=== PATIENT | male | born 1950 | race Caucasian/White ===

== ENCOUNTER → 2016-05-09 | Outpatient (CLI) | payer MEDICARE, OTHER ==
[~2016-05-09] VITALS: Ht 170.2 cm; Wt 122.6 kg
[~2016-05-09] MED LIST: ALBU90AE IH; AMLO10TA PO; ASPI-587 PO; ASPI81TA19 GT; BREO ELLIPTA PUFF; BREO PUFF; BUPIVACAINE 0.25% 30 ML (SENSORCAINE) VIAL ONE; CHOL400C8 PO; ENLP10T GT; FENO135C PO; FISH1CAP15 PO; FOLI1TAB24 PO; GLIP10TA13 PO; GLUC-132 PO; IBUP200C PO; L GA1CAP2 PO; LACT1CAP64 PO; LVT.05T PO; METO-272 PO; TAMS0.4C2 PO; TIOT18CA2 IH; TRIAMCINOLONE ACET (KENALOG-40) 40 MG/ML 1 ML VIAL ONE
--- OUTSIDE RECORDS SUMMARY | 2016-05-09 12:33 | XMS REPORT | Continuity of Care Document ---
Author Author [facility] Organization [facility] Address Unknown Phone Unavailable Care Team Providers Care Java Swing Developer Name Role Phone ALTON FINK MD PCP Insurance Providers Payer Name Policy Number Subscriber Name Relationship W[employer] Medicare [id number] Raimundo Gonzalez 16 Self / Same As Patient Comm Crossover Enter Ins Name [id number] Raimundo Gonzalez 16 Self / Same As Patient Advance Directives Directive Response Recorded Date/Time Advance Directives No 08/18/14 4:03pm Health Care Power of Horticultural Nursery Assistant No 08/18/14 4:03pm Organ Donor No 08/18/14 4:03pm Resuscitation Status Full Code 08/18/14 4:03pm Problems Medical Problems Problem Onset Date Status CAD (coronary artery disease) 09/10/2013 Active Hyperlipemia 09/10/2013 Active Medications Medication Dose Route Sig Days/Qty Instructions Order Date Discontinued Date Status Aspirin 81 Mg PO DAILY 09/10/13 Active Aspirin 81 Mg GT DAILY 09/10/13 09/10/13 Discontinued Ibuprofen (Motrin) 200 Mg PO EVERY 6 HOURS PRN PAIN 09/10/13 Active Glucosamine/D3/Boswellia Bree 1 Each PO DAILY 09/10/13 Active Fish Oil/Dha/Epa 1 Each PO DAILY 09/10/13 Active Lactobacillus Combo No.11 1 Each PO DAILY 09/10/13 Active Cholecalciferol (Vitamin D3) 400 Unit PO DAILY 09/10/13 Active Folic Acid 1 Mg PO DAILY 09/10/13 Active Amlodipine Besylate 10 Mg PO DAILY 09/10/13 Active Metoprolol Succinate (Toprol Xl) 1 Each PO TWICE A DAY 09/10/13 Active Enalapril Maleate 10 Mg GT TWICE A DAY 09/10/13 Active Levothyroxine Sodium (Levothroid) 1 Each PO DAILY 09/10/13 Active Fenofibrate 1 Each PO DAILY 30 Qty 09/10/13 Active [Breo] 1 Inh PUFF DAILY 09/10/13 09/10/13 Discontinued [[Breo Ellipta] 1 Inh PUFF DAILY 09/10/13 Active Social History Social History Problem Response Recorded Date/Time Recent Foreign Travel No 08/18/2014 4:00pm Hospital Discharge Instructions No hospital discharge instructions. Plan of Care No plan of care. Functional Status No functional status results. Allergies, Adverse Reactions, Alerts Allergen Type Severity Reaction Status Last Updated No Known Drug Allergies Active 09/10/13 Immunizations Name Given Type Date of Pneumonia Vaccine 09/10/09 Historical Vital Signs Acute Vital Signs Vital Response Date/Time Temperature (Fahrenheit) 97.3 degrees F (97.6 - 99.5) Temperature (Calculated Celsius) 36.92603 degrees C (36.4 - 37.5) Temperature Source Tympanic Pulse Rate (adult) 84 bpm (60 - 90) Respiratory Rate 16 bpm (12 - 24) O2 Sat by Pulse Oximetry 100 % (88 - 100) Blood Pressure 155/84 mm Hg Pain Pain Intensity 0 Height (Feet) 5 feet Height (Inches) 6.00 inches Height (Calculated Centimeters) 167.808977 cm Weight (Pounds) 268 pounds Weight (Calculated Grams) 036917.756 gm Weight (Calculated Kilograms) 121.549308 kilograms Calculated BMI 43.25 Results Laboratory Results Test Name Result Units Flags Reference Collection Date/Time Result Date/ Time Comments Sodium Level 136 MMOL/L 135-145 08/06/2014 9:56am 08/06/2014 10:19am Potassium Level 4.7 MMOL/L 3.6-5.0 08/06/2014 9:56am 08/06/2014 10: 19am Chloride Level 102 MMOL/L 98-107 08/06/2014 9:56am 08/06/2014 10:19am Carbon Dioxide Level 24 MMOL/L 21-32 08/06/2014 9:56am 08/06/2014 10: 19am Blood Urea Nitrogen 21 MG/DL H 7-18 08/06/2014 9:56am 08/06/2014 10:19am Creatinine 1.25 MG/DL 0.60-1.30 08/06/2014 9:56am 08/06/2014 10:19am BUN/Creatinine Ratio 17 08/06/2014 9:56am 08/06/2014 10:19am Estimat Glomerular Filtration Rate 58 08/06/2014 9:56am 08/06/2014 10:19am GFR INTERPRETIVE DATA UNITS FOR ESTIMATED GFR (eGFR): mL/min/1.73 M2 REFERENCE RANGE FOR ESTIMATED GFR (eGFR) eGFR NORMAL eGFR >60 MODERATELY DECREASED eGFR 30-59 SEVERLY DECREASED eGFR 15-29 KIDNEY FAILURE <15 (OR DIALYSIS) Glucose Level 154 MG/DL H 70-105 08/06/2014 9:56am 08/06/2014 10:19am Calcium Level 9.6 MG/DL 8.5-10.1 08/06/2014 9:56am 08/06/2014 10:19am Total Bilirubin 0.4 MG/DL 0.1-1.0 08/06/2014 9:56am 08/06/2014 10:19am Alkaline Phosphatase 70 U/L 40-136 08/06/2014 9:56am 08/06/2014 10: 19am Aspartate Amino Transf (AST/SGOT) 22 U/L 5-34 08/06/2014 9:56am 2014 10:19am Alanine Aminotransferase (ALT/SGPT) 25 U/L 0-55 08/06/2014 9:56am 08/06 10:19am Total Protein 7.7 G/DL 6.4-8.2 08/06/2014 9:56am 08/06/2014 10:19am Albumin 3.9 G/DL 3.2-4.5 08/06/2014 9:56am 08/06/2014 10:19am Triglycerides Level 558 MG/DL H <150 08/06/2014 9:56am 08/06/2014 10: 19am Cholesterol Level 195 MG/DL < 200 08/06/2014 9:56am 08/06/2014 10:19am HDL Cholesterol 26 MG/DL L 40-60 08/06/2014 9:56am 08/06/2014 10:19am LDL Cholesterol Direct 75 MG/DL 1-129 08/06/2014 9:56am 08/06/2014 10: 19am VLDL Cholesterol 112 MG/DL H 5-40 08/06/2014 9:56am 08/06/2014 10:19am Procedures No known history of procedures. Encounters Encounter Location Date/Time Registered [facility] 08/18/14 3:31pm Registered [facility] 08/12/14 12:55pm Registered Clinic [facility] 08/06/14 9:42am
[2016-05-09 12:54] VITALS: BP 152/96
[2016-05-09 13:28] VITALS: BP 150/105
--- NOTE | 2016-05-09 14:14 | Pain Medicine-Procedure ---
Procedure Pre-Op/Post-Op Diagnosis Diagnosis: disc disorder with radiculopathy, lumbar Indications for Operation Low back pain Attending Surgeon Pat Procedure Date of Service: May 09, 2016 PROCEDURE: Caudal Epidural Steroid Injection with catheter under Flouroscopic Guidance PROCEDURE NOTE: After obtaining written informed consent patient was taken to the procedure room. Vital signs were monitored through out the procedure. A time out was performed. The patient was placed in the prone position on fluoroscopy table. The lower back above the caudal space was prepped with chloraprep and draped in the usual sterile fashion. The skin over the sacral hiatus was identified under fluoroscopic guidance and infiltrated with 1% lidocaine for local anesthesia via 25 gauge needle. An 17-gauge epimed needle was used to access the epidural space under fluoroscopic guidance and was then advanced into the epidural space under fluoroscopic guidance in the AP view. The epimed catheter was then advanced under flourospopic guidance to the L5-S1 interspace. There was no paresthesia with catheter placement. After negative aspiration 1 cc of the contrast dye was injected through the needle with good spread of the medication in the epidural space at the appropriate levels. Again, after negative aspiration, 80 mg of kenalog with 2 cc of 0.25% marcaine and 2 mL's of preservative free normal saline was injected. There was no evidence of CSF, paresthesia or heme during the procedure. The catheter and needle were withdrawn as a unit and the tip was noted to be intact upon removal. Skin was cleaned and a sterile dressing was applied. Following the procedure the patient's vital signs were stable. The patient was discharged home after a brief period of observation with no new neuologic deficits. Complications None JORGE SWARTZ MD May 09, 2016 2:14 pm
== END ==
LOC: CARD 12:30
PROVIDERS: ATTEND Pain Medicine Pain Medicine
DX: M51.16 Intervertebral disc disorders with radiculopathy, lumbar region (principal); Z79.899 Other long term (current) drug therapy
CPT/HCPCS: 62323

== ENCOUNTER → 2016-08-09 | Outpatient (CLI) | payer MEDICARE, OTHER ==
[~2016-08-09] MED LIST changes: -BUPIVACAINE 0.25% 30 ML (SENSORCAINE) VIAL ONE; -TRIAMCINOLONE ACET (KENALOG-40) 40 MG/ML 1 ML VIAL ONE
--- NOTE | 2016-08-11 09:26 | ECHOCARDIOGRAPHY REPORT ---
DATE OF SERVICE: 08/09/2016 ECHOCARDIOGRAPHY REPORT ORDERING PHYSICIAN: Dr. Meng. CLINICAL DIAGNOSES: Coronary artery disease, hypertension, shortness of breath. MEASUREMENTS: Left atrium 3.4. Aortic root 3.9. DESCRIPTION: This is a technically difficult study. Measurements are not reliable. On the views available, there does not appear to be significant pericardial effusion. Mitral and tricuspid valve leaflets seem to have good leaflet excursion. Aortic valve leaflets are not very well-visualized. There does appear to be some aortic valve sclerosis. Doppler imaging did not indicate significant valvular regurgitation or stenosis. To outline the endocardial borders, we used Definity contrast after obtaining an informed consent. This shows that the ventricular function is normal and no distinct regional wall motion abnormalities are identified. Left ventricular ejection fraction is approximately 65%. CONCLUSIONS: 1. Technically difficult study. 2. With Definity contrast, no distinct regional wall motion abnormalities were seen and left ventricular ejection fraction is estimated to be approximately 65%. 3. Mild aortic valve sclerosis. 4. No evidence of significant valvular regurgitation or stenosis. Job ID: [id number] DocumentID: [id number] Dictated Date: 08/10/2016 14:15:11 Student Services Director Date: 08/10/2016 16:38:52 Dictated By: EVETTE MENG MD, MA, FACP, FACC,
== END ==
LOC: CARD 08:33
PROVIDERS: ATTEND Internal Medicine Cardiovascular Disease
DX: I25.10 Atherosclerotic heart disease of native coronary artery without angina pectoris (principal); I65.23 Occlusion and stenosis of bilateral carotid arteries; J43.8 Other emphysema; I10 Essential (primary) hypertension; I70.213 Atherosclerosis of native arteries of extremities with intermittent claudication, bilateral legs; R06.02 Shortness of breath; E66.09 Other obesity due to excess calories